=== PATIENT | female | born 1985 | race Caucasian/White ===

== ENCOUNTER 2020-07-23 23:04 | Emergency (ER) | payer MEDICAID ==
[~2020-07-23] VITALS: Ht 167.6 cm; Wt 100.0 kg
--- NOTE | 2020-07-23 23:18 | PHYS DOC ---
Past History Past Medical History: Asthma Past Surgical History: Smoking: Cigarettes Alcohol Use: None Drug Use: None Adult General HPI HPI Patient is a 35-year-old female with a past medical history significant for asthma, IBS and GERD who presents with a chief complaint of epigastric pain associate with nausea vomiting. States that last night they celebrated her daughter's birthday, ate at 's pizza and she drank about a pint of liquor. States she does not drink that often. States that about 3 or 4 in the morning last night she woke up with epigastric abdominal pain, sharp in nature, 7 out of 10 with associated nonbloody nonbilious vomiting. States she had some soft stools that were darker than usual. Denies any history of hematemesis, hemoptysis, hematuria, melena or hematochezia. States she does take a PPI daily for her GERD. Denies any recent travel, illnesses, fevers, chest pain, shortness of breath, traumas. Review of Systems Review of Systems Review of systems otherwise unremarkable except for noted in HPI Allergies Allergies Allergies Coded Allergies Type Severity Reaction Last Updated Verified Penicillins Allergy Intermediate 10/13/13 Yes Physical Exam Physical Exam Constitutional: Well developed, well nourished, no acute distress, non-toxic appearance. [] HENT: Normocephalic, atraumatic, oropharynx moist, no oral exudates, Eyes: conjunctiva normal, no discharge. [] Neck: Normal range of motion, no tenderness, Cardiovascular:Heart rate regular rhythm, no murmur [] Lungs & Thorax: Bilateral breath sounds clear to auscultation [] Abdomen: Bowel sounds normal, soft, epigastric tenderness, no masses, no pulsatile masses. [] Skin: Warm, dry, no erythema, no rash. [] Back: No tenderness, no CVA tenderness. [] Extremities: No tenderness, no cyanosis, no clubbing, ROM intact, no edema. [] Neurologic: Alert and oriented X 3, normal motor function, normal sensory function, no focal deficits noted. [] Psychologic: Affect normal, judgement normal, mood normal. [] Current Patient Data Lab Results Laboratory Tests Test 07/23/20 23:15 07/23/20 23:41 White Blood Count 21.7 x10^3/uL (4.0-11.0) Red Blood Count 4.72 x10^6/uL (3.50-5.40) Hemoglobin 14.8 g/dL (12.0-15.5) Hematocrit 43.9 % (36.0-47.0) Mean Corpuscular Volume 93 fL (79-100) Mean Corpuscular Hemoglobin 31 pg (25-35) Mean Corpuscular Hemoglobin Concent 34 g/dL (31-37) Red Cell Distribution Width 13.1 % (11.5-14.5) Platelet Count 352 x10^3/uL (140-400) Neutrophils (%) (Auto) 83 % (31-73) Lymphocytes (%) (Auto) 9 % (24-48) Monocytes (%) (Auto) 6 % (0-9) Eosinophils (%) (Auto) 0 % (0-3) Basophils (%) (Auto) 1 % (0-3) Neutrophils # (Auto) 18.1 x10^3uL (1.8-7.7) Lymphocytes # (Auto) 2.0 x10^3/uL (1.0-4.8) Monocytes # (Auto) 1.4 x10^3/uL (0.0-1.1) Eosinophils # (Auto) 0.1 x10^3/uL (0.0-0.7) Basophils # (Auto) 0.1 x10^3/uL (0.0-0.2) Segmented Neutrophils % 86 % (35-66) Band Neutrophils % 2 % (0-9) Lymphocytes % 8 % (24-48) Monocytes % 4 % (0-10) Platelet Estimate Adequate (ADEQUATE) Sodium Level 143 mmol/L (136-145) Potassium Level 2.9 mmol/L (3.5-5.1) Chloride Level 105 mmol/L (98-107) Carbon Dioxide Level 23 mmol/L (21-32) Anion Gap 15 (6-14) Blood Urea Nitrogen 23 mg/dL (7-20) Creatinine 1.3 mg/dL (0.6-1.0) Estimated GFR (Cockcroft-Gault) 47.2 BUN/Creatinine Ratio 18 (6-20) Glucose Level 150 mg/dL (70-99) Calcium Level 9.4 mg/dL (8.5-10.1) Total Bilirubin 0.5 mg/dL (0.2-1.0) Aspartate Amino Transf (AST/SGOT) 13 U/L (15-37) Alanine Aminotransferase (ALT/SGPT) 26 U/L (14-59) Alkaline Phosphatase 84 U/L (46-116) Total Protein 7.9 g/dL (6.4-8.2) Albumin 4.2 g/dL (3.4-5.0) Albumin/Globulin Ratio 1.1 (1.0-1.7) Lipase 328 U/L (73-393) Urine Collection Type Unknown Urine Color Yellow Urine Clarity Clear Urine pH 6.0 Urine Specific Norton >=1.030 Urine Protein >100 mg/dl (NEG-TRACE) Urine Glucose (UA) Neg mg/dL (NEG) Urine Ketones (Stick) 15 mg/dL (NEG) Urine Blood Mod (NEG) Urine Nitrite Neg (NEG) Urine Bilirubin Neg (NEG) Urine Urobilinogen Dipstick 0.2 mg/dL (0.2 mg/dL) Urine Leukocyte Esterase Neg (NEG) Urine RBC 1-2 /HPF (0-2) Urine WBC Occ /HPF (0-4) Urine Squamous Epithelial Cells Mod /LPF Urine Bacteria Few /HPF (0-FEW) Urine Mucus Mod /LPF Urine Test Negative (NEG) EKG EKG Rate of 77, QRS of 88, QTc of 473, no STEMI. [] Radiology/Procedures Radiology/Procedures []CT abdomen and pelvis with contrast PQRS statement: CT scans at this facility use dose reduction including either automated exposure control, iterative reconstructions, and /or weight based radiation dosing via mA and kV modification when appropriate to reduce radiation dose to as low as reasonably achievable. Contrast: 75 mL Omnipaque 300 intravenous contrast. HISTORY: Epigastric abdominal pain, nausea and vomiting. History of prior GI bleeding. Abdomen findings: Lumbar disc osteophytes with spinal canal neural foraminal stenoses at L4-5 and L5-S1. Cholecystectomy. Kidneys, adrenals, spleen, pancreas and liver are unremarkable. Small accessory spleen. Appendix is negative. No obstruction or inflammation GI tract. No abdominal fluid or adenopathy. Pelvis findings: Nonspecific 2 cm hypodensity left ovary likely a dominant follicle could be further assessed with pelvic sonography. Right ovary somewhat obscured by surrounding bowel is. Uterus, bladder, rectum and bones are unremarkable. IMPRESSION: No acute process. Appendix is negative. Incidental findings as described above. Electronically signed by: Jaspal Kilpatrick MD (07/24/2020 12:50 AM) [facility] – [place], [place] Chest x-ray not concerning. Heart Score Risk Factors: Risk Factors: DM, Current or recent (<one month) smoker, HTN, HLP, family history of CAD, obesity. Risk Scores: Risk Factors: DM, Current or recent (<one month) smoker, HTN, HLP, family history of CAD, obesity. Course & Med Decision Making Course & Med Decision Making Patient is a 35-year-old female who presents with epigastric pain Vital signs not concerning. Physical exam noted above. Patient placed on monitor with IV access established and IV fluid resuscitation began. Given dose of Protonix. Given Zofran. Given morphine. CT noted above with no acute findings. Fecal occult blood negative. Laboratory finding notable for neutrophilic leukocytosis and hypokalemia, with slightly elevated creatinine. Potassium and magnesium replaced. On reassessment patient stated she was feeling wonderful, and back to baseline and ready to be discharged home. Discussed elevated white count with patient and gave differential diagnosis including stress from all the vomiting but could also be infection. Offered admission for observation and continued fluid resuscitation given that her creatinine was slightly high as well. Patient states that she gets like this all the time, is feeling 100% better and is ready to go home. Advised to follow-up first thing tomorrow with primary care physician, eat a light diet over the next couple of days and stay well-hydrated. Advised to come back to the ED with any new or concerning symptoms. Patient grateful, verbalized understanding and agreed with plan of discharge. [] Dragon Disclaimer Dragon Disclaimer This electronic medical record was generated, in whole or in part, using a voice recognition dictation system. Departure Departure: Impression: Primary Impression: Epigastric pain Additional Impressions: Nausea and vomiting Dark stools Disposition: 01 DC HOME SELF CARE/HOMELESS Condition: GOOD Referrals: LITO ARMENDARIZ MD Patient Instructions: Abdominal Pain (Nonspecific), Nausea and Vomiting, [id number] Additional Instructions: Please read all attached information. As discussed, please eat a light diet over the next few days and stay well-hydrated. Please call your primary care physician first thing tomorrow to discuss ED visit and set up post ER follow-up visit. Please come back to the ED immediately with any new or concerning symptoms. Problem Qualifiers YOBANI DIAZ MD Jul 23, 2020 23:18
[2020-07-23] MEDS ORDERED: PANTOPRAZOLE IV 40 MG VIAL. ONE (23:23)
[2020-07-23] MEDS ORDERED: IV NORMAL SALINE 100ML 100 ML ONE (23:23)
[2020-07-23] MEDS ORDERED: MORPHINE SULFATE 4 MG/ML DISP.SYRIN. IV ONE (23:30)
[2020-07-23] MEDS ORDERED: ONDANSETRON PF 4 MG/2 ML VIAL. IVP ONE (23:30)
[2020-07-23] MEDS ORDERED: IV RINGERS SOLUTION,LACTATED 1,000 ML IV ONE (23:30)
[2020-07-23] MEDS ORDERED: PANTOPRAZOLE IV 80 MG in IV NORMAL SALINE 100ML 100 ML IV ONE (23:30)
[2020-07-23 23:32] LABS: BASO # 0.1 x10^3/uL (0.0-0.2); BASO % 1 % (0-3); EOS # 0.1 x10^3/uL (0.0-0.7); EOS % 0 % (0-3); HEMATOCRIT 43.9 % (36.0-47.0); HEMOGLOBIN 14.8 g/dL (12.0-15.5); LYMPH % 9 % (24-48); MEAN CORPUSCULAR HEMOGLOBIN 31 pg (25-35); MEAN CORPUSCULAR HGB CONC 34 g/dL (31-37); MEAN CORPUSCULAR VOLUME 93 fL (79-100); MONO # 1.4 x10^3/uL (0.0-1.1); MONO % 6 % (0-9); NEUT # 18.1 x10^3uL (1.8-7.7); NEUT % 83 % (31-73); PLATELET COUNT 352 x10^3/uL (140-400); RED BLOOD COUNT 4.72 x10^6/uL (3.50-5.40); RED CELL DISTRIBUTION WIDTH 13.1 % (11.5-14.5); WHITE BLOOD COUNT 21.7 x10^3/uL (4.0-11.0)
[2020-07-23] MEDS ORDERED: CONTRAST GIVEN. MC PRN (23:45)
[2020-07-23] MEDS ORDERED: IOHEXOL 300 MG/ML 75 ML VIAL. IV ONE (23:45)
[2020-07-23 23:51] LABS: ALBUMIN 4.2 g/dL (3.4-5.0); ALBUMIN/GLOBULIN RATIO 1.1 (1.0-1.7); CALCIUM 9.4 mg/dL (8.5-10.1); CREATININE 1.3 mg/dL (0.6-1.0); GFR 47.2; TOTAL BILIRUBIN 0.5 mg/dL (0.2-1.0); TOTAL PROTEIN 7.9 g/dL (6.4-8.2)
[2020-07-23 23:53] LABS: POTASSIUM 2.9 mmol/L (3.5-5.1)
[2020-07-24 00:03] LABS: % BANDS 2 % (0-9); % LYMPHS 8 % (24-48); % MONOS 4 % (0-10); % SEGS 86 % (35-66); PLT ESTIMATE ADEQUATE (ADEQUATE)
[2020-07-24 00:08] LABS: BACTERIA,URINE FEW /HPF (0-FEW); BILIRUBIN,URINE NEG (NEG); CLARITY,URINE CLEAR; COLOR,URINE YELLOW; GLUCOSE,URINE NEG (NEG); NITRITE,URINE NEG (NEG); SQUAMOUS EPITHELIAL CELL,UR MOD /LPF; UROBILINOGEN,URINE 0.2 mg/dL (0.2 mg/dL); WBC,URINE OCC /HPF (0-4)
[2020-07-24 00:17] LABS: U PREG PATIENT NEGATIVE (NEG)
[2020-07-24] MEDS ORDERED: MAGNESIUM OXIDE 400 MG TABLET PO ONE (00:30)
[2020-07-24] MEDS ORDERED: IV RINGERS SOLUTION,LACTATED 1,000 ML IV ONE (00:30)
[2020-07-24] MEDS ORDERED: POTASSIUM CHLORIDE 20 MEQ TABLET.ER. PO ONE (00:30)
[2020-07-24 00:34] VITALS: BP 133/80
--- NOTE | 2020-07-24 00:52 | RAD ---
CT abdomen and pelvis with contrast PQRS statement: CT scans at this facility use dose reduction including either automated exposure cont rol, iterative reconstructions, and /or weight based radiation dosing via mA and kV modification when appropriate to reduce radiation dose to as low as reasonably achievable. Contrast: 75 mL Omnipaque 300 intravenous contrast. HISTORY: Epigastric abdominal pain, nausea and vomiting. History of prior GI bleeding. Abdomen findings: Lumbar disc osteophytes with spinal canal neural foraminal stenoses at L4-5 and L5- S1. Cholecystectomy. Kidneys, adrenals, spleen, pancreas and liver are unremarkable. Small accessory spleen. Appendix is negative. No obstruction or inflammation GI tract. No abdominal fluid or adenopat hy. Pelvis findings: Nonspecific 2 cm hypodensity left ovary likely a dominant follicle could be further assessed with pelvic sonography. Right ovary somewhat obscured by surrounding bowel is. Uterus, bladd er, rectum and bones are unremarkable. IMPRESSION: No acute process. Appendix is negative. Incidental findings as described above. Electronically signed by: Jaspal Kilpatrick MD (07/24/2020 12:50 AM) [facility]
[2020-07-24 01:09] LABS: FECAL OB PT NEGATIVE (NEG)
--- NOTE | 2020-07-24 03:21 | RAD ---
PA lateral chest x-rays HISTORY: Family history of congestive heart failure. epigastric abdominal pain. FINDINGS: Heart size normal. Mediastinal silhouette is normal. No pneumothorax, pulmonary opacities o r pleural effusions. Bones are unremarkable. IMPRESSION: No acute process. Electronically signed by: Jaspal Kilpatrick MD (07/24/2020 3:16 AM) [facility]
--- NOTE | 2020-07-24 04:26 | EKG ---
[facility] [address] [place] [id number] Test Date: 2020-07-24 Test Time: 00:44:43 Pat Name: FERDINAND WORTHY Department: Room: Gender: F Hris Developer: : 1985 Requested By: YOBANI DIAZ Order Number: [id number] Reading MD: Measurements Intervals [place] Rate: 77 P: 24 AL: 130 QRS: 76 QRSD: 88 T: 43 QT: 416 QTc: 473 Interpretive Statements SINUS RHYTHM LEFT ATRIAL ABNORMALITY PROLONGED QT ABNORMAL ECG RI6.02 No previous ECG available for comparison
== END 2020-07-24 02:25 | disposition home or self-care (01) ==
LOC: ER 23:04
DX: R10.13 Epigastric pain (principal); R11.2 Nausea with vomiting, unspecified; J45.909 Unspecified asthma, uncomplicated; F17.210 Nicotine dependence, cigarettes, uncomplicated; K21.9 Gastro-esophageal reflux disease without esophagitis; Z98.890 Other specified postprocedural states; Z88.0 Allergy status to penicillin
CPT/HCPCS: 36415; 71046; 74177; 80053; 81001; 81025; 82274; 83690; 84484; 85007; 85025; 93005; 96365; 96366; 96375; 99285; C9113; J2270; J2405; J7120; Q9967